=== PATIENT | female | born 1980 ===

== ENCOUNTER 2025-03-09 06:23 | Day surgery (SDC) | payer OTHER, SELFPAY ==
[2025-03-02 13:52] VITALS: BMI 25.2
--- NOTE | 2025-03-08 14:53 | W.CON.GYNONC ---
Chief Complaint
-
fibroids
History of Present Illness
44�year�old [place] woman who is presenting for consultation regarding possible surgery, for abnormal uterine bleeding
referred to me by . 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
the last year, previously was seen in [facility]. She bleeds anywhere from 3 to 7 days and uses combination of tampons and pads
and still occasionally has accidents. It is significantly affecting her work and lifestyle
Pap smear dated April 07, 2024 was negative cytology high risk HPV negative.
Her labs in March 2024 indicated premenopausal profile for FSH.
Endometrial biopsy performed April 22, 2024 shows Proliferative endometrium with no evidence of hyperplasia atypia or malignancy
Ultrasound of pelvis December 15, 2024 shows uterus measuring 13.1 x 8.6 x 8.2 cm, endometrium is 9 mm, fibroids are noted to be
present 7.2 cm posteriorly and 4.3 cm submucosal on right adnexal pedunculated. Right ovary is 3.4 cm with a 1.8 cm simple cyst
and left ovary measures 2.6 cm. There is an IUD in the lower uterine segment and properly positioned
This patient did have a D&C hysteroscopy performed January 20, 2025 which shows minute strips of benign surface endometrium
epithelium decidualized stroma predominantly blood. Hysteroscopic finding was significant for moderate distortion and building of
anterior uterine wall at lower segment by large known fibroid, smaller fibroids are noted indenting the myometrium at fundal area to.
IUD was noted with a string at the endocervix. The Mirena IUD was removed. The rest of the endometrial cavity was normal.
Social�History Patient�denies�ever�using�tobacco. Social�use�of�alcohol. Denies�any�illicit�drug�use.
Occupational�Status:�Current:�Sales. Patient�has�not�had�any�occupational�exposure.
Marital�Status:�Patient�is�
Patient�Reported�Level�of�Pain �� Pain:�0���No�pain. Treatment�Recommendations�for�Pain Continue�current�pain�regimen.
Review�Of�Systems The�review�of�12�systems�is�negative�except�as�outlined�in�history�of�present�illness.
Medical History
Allergies
Allergies reflect when allergies were last updated in [facility].
No Known Allergies Allergy (Unverified 03/03/25 13:37)
Physical Exam
Physical Exam
Pelvic Examination:
External normal labia, urethra, anus.
Vagina: Normal mucosa.
Cervix: normal appearance, deviated posteriorly, there is no lesions and no discharge.
Uterus: 12 weeks size, mobile, large anterior myoma just above symphysis pubis,
Adnexa: No pelvic mass.
RVE: no masses or nodularity
General: Well developed, well nourished patient. In no acute distress.
Eyes: EOMI. Sclerae are anicteric.
Neck: No thyromegaly. No cervical lymphadenopathy.
Lungs: Clear to auscultation. Good air movement bilaterally.
Cardiac: Regular rate. Regular rhythm. No murmurs appreciated.
Right Breast: No masses or dimpling. No nipple discharge.
Left Breast: No masses or dimpling. No nipple discharge.
Abdomen: Abdomen is soft. Non�tender to palpation. Non�distended.
Extremities: No edema.
Hematologic/Lymphatic: No palpable lymphadenopathy.
Musculoskeletal: Normal range of motion. Strength and Tone are normal.
Skin:Non�jaundiced. No petechia. No purpura.
Neurologic: Speech is fluent. Normal gait and station. Cranial nerves intact.
Impression / Plan
-
This patient has multiple leiomyoma now at age 44 causing significant menorrhagia. She has not responded with conservative
management send medical management is referred to us for surgical treatment. I discussed other options including myomectomy
and uterine artery embolization. I favor that the patient should undergo hysterectomy for definitive management. We discussed
option of robotic assisted total laparoscopic hysterectomy, bilateral salpingectomy with preservation of bilateral ovaries. The patient
is agreeable.
I am recommending labs including iron B12 folic acid studies
If the patient is anemic IV iron may be prescribed
An MRI of the pelvis would be done to better delineate location of myoma for preoperative planning
Surgery will be scheduled in early March and the patient will be notified by our surgical staff
Risks of surgery including infection bleeding injury to adjacent organs, DVT pulmonary embolism and cardiovascular complications
were discussed and reviewed
Informed consent was signed with the asphalt patcher in the office today.
[2025-03-09] VITALS (10 sets, daily range): BP systolic 98–115; BP diastolic 55–77; BMI 25.2
[2025-03-09] MEDS: CELEBREX 200 MG PO (11:15)
[2025-03-09] MEDS: TYLENOL 1000 MG PO (11:15)
[2025-03-09] MEDS: NORMOSOL-R/PLASMALYTE-A 1000 IV (11:15)
[2025-03-09] MEDS: NEURONTIN 300 MG PO (11:15)
[2025-03-09] MEDS: HEPARIN 5000 UNITS SC (11:39)
--- NOTE | 2025-03-09 14:27 | OR.RPT ---
Operative Report
Operative Report
Date of procedure: March 09, 2025
Preoperative diagnosis: Symptomatic uterine leiomyoma
Postoperative diagnosis: Same
Surgeon: Romaine Pennington
Assist: Valeri Rivas PA-C,MARGARITA Meeks
Procedure: Robotic assisted total laparoscopic hysterectomy, uterine weight greater than 250 g, bilateral salpingectomy with preservation of bilateral ovaries
Excision of right pelvic peritoneal ectopic mass/leiomyoma
Repair of right periurethral/vaginal laceration
TAP block
Anesthesia: General Endotracheal intubation
EBL: 100 cc
Complications: None
Specimen: Uterus and cervix, right and left fallopian tubes, right pelvic peritoneum with ectopic leiomyoma
Indication for surgery 44-year-old woman with 5-year history of abnormal uterine bleeding interfering with her lifestyle, her workup including D&C Pap smear has been negative she has had medical management which was unsuccessful she presented for
definitive management by surgery.
Intraoperative findings: Upper abdomen including liver right and left lobe as well as right and left diaphragms and spleen and stomach and omentum are normal. Right and left paracolic gutters are without any significant abnormalities. Visualized
loops of small bowel and appendix are normal. Uterus is enlarged approximately 14 weeks in size mostly soft by palpation, there is a pedunculated 5 cm right cornual leiomyoma, bilateral ovaries appear to be within normal limits, right ovary and
fallopian tube are incorporated into. A pedunculated leiomyoma is attached to the uterus creating a distorted anatomy. There was a tubular 3 cm ectopic type implant along the right pelvic peritoneum.
Procedure in detail this patient was taken to the operating room and placed in supine position. General anesthesia was administered she was intubated without any difficulty she was placed in lithotomy position using yellowfin stirrups. Her arms
were wrapped in foam and placed along the patient's sides and appropriate IVs were obtained by anesthesia. The patient was prepped and draped in the abdomen perineum and vagina and upper thighs and draped. Timeout procedure was carried out, she
received antibiotics 2 g Ancef as well as 500 mg of Flagyl and had received subcutaneous injection of 5000 units of heparin. Fountain catheter was placed under sterile conditions in the bladder. The uterine manipulator was placed and the cervix next,
after the cervix was dilated up to 25 Hegar dilator, 4 cm MYRON ring on it dictating machine typist uterine manipulator was used vaginal cuff occluder was insufflated. Attention was turned abdominally Veress needle was placed just below left subcostal margin and
CO2 was used to create pneumoperitoneum up to pressure of 15 mmHg. Following this 8 mm X I robotic port was introduced 20 cm cephalad to symphysis pubis into the peritoneal cavity, under direct visualization 8 mm ports were placed in the right and
left upper quadrants and right and left lateral abdomen. MARIE block was performed with a combination of ropivacaine and Decadron injected 2 fingerbreadths below the lateral aspects of right and left subcostal margins as well as right and left mid
abdomen under direct visualization. Following this patient was placed in a 28 degree Trendelenburg and robotic system was docked. Right and left round ligaments were sealed and divided anterior and posterior leaves of the broad ligament were
dissected open. Both IP ligaments were identified and followed to the ovaries. The fallopian tubes were elevated mesosalpinx was sealed and divided with vessel sealer's and right and left fallopian tubes were detached from the uterus and submitted
to pathology separately we opened a avascular space between ovarian vessels and ureters and then sealed and divided the utero-ovarian ligament and any residual tissue here in order to free the ovaries from the uterus peritoneal incisions were made
on the posterior aspect of the uterus down to uterosacral ligaments. The right ectopic nodular implant along the right pelvic sidewall was excised while visualizing the course of the ureter and there was no injury to the ureter. Bladder flap was
sharply developed and advanced below the cervicovaginal junction. Uterine arteries followed by cardinal ligaments followed by uterosacral ligaments were serially sealed and divided with vessel sealer. Circumferential incision was made over the MYRON
ring with electrocautery until the uterus was completely detached. The uterus and cervix were delivered through the vagina with moderate pulling pressure and once it was removed vaginal apex was examined. There was bleeding along the right uterine
vessels a [id number] suture of 3-0 Vicryl was placed to control this bleeding next [id number] sutures of 0 Vicryl was placed at the right and left vaginal apices incorporating uterosacral ligaments for suspension of the vagina. Next we
used a V-Loc suture to close the cuff starting from the right to the left and then back to the right sides in 2 layers. I examined all pedicles and there was no evidence of bleeding, the pelvis was irrigated all instruments were removed
pneumoperitoneum was released the skin incision on the abdomen was closed with 4-0 Monocryl in a subcuticular fashion and Dermabond was applied to all incisions.
The vagina was examined vaginal apex is closed and well supported there was no upper vaginal lacerations. There was a 2 cm laceration on the right side of the urethral meatus. A running suture of 3-0 Vicryl was used to close this incision and
Hemostasis was present suture was cut there was no other evidence of bleeding. Fountain catheter was removed. Patient was placed back in supine position in stable awake condition. She was transferred to recovery room. Counts of laps instruments and
needle was correct x 2. I was present and scrubbed for entire procedure as dictated above.
Disposition: To PACU, awake alert stable
[2025-03-09] MEDS: DILAUDID 0.25 MG IV (14:29)
[2025-03-09] MEDS: TYLENOL 650 MG PO (17:19)
== END 2025-03-09 17:25 | disposition home or self-care (01) ==
LOC: SDS 06:23
PROVIDERS: ATTENDING PHYSICIAN Obstetrics & Gynecology Gynecologic Oncology
DX: D25.1 Intramural leiomyoma of uterus (principal)
CPT/HCPCS: 58573; 88305; 88307; 36415; 86850; 86900; 86901